=== PATIENT | female | born 1975 | race Caucasian/White ===

== ENCOUNTER → 2016-12-16 | Outpatient (CLI) | payer BC ==
[2015-02-19 09:39] VITALS: BP 119/80
[~2016-12-16] MED LIST: OXYC-328 PO
--- NOTE | 2016-12-16 17:57 | KCIC ---
EXAM: Lumbar spine MRI without contrast. HISTORY: Pain. TECHNIQUE: Multiplanar, multisequence magnetic resonance imaging of the lumbar spine was performed without contrast. COMPARISON: MRI dated 05/30/2014. FINDINGS: There is minimal retrolisthesis of L5-S1. The vertebral bodies are normal in height and demonstrate normal marrow signal intensity. There is disc desiccation at L5-S1. The conus terminates at L1. At L1-L2 and L2-L3, there is no stenosis. At L3-L4, there is a left foraminal to extraforaminal disc protrusion with annular tear and minimal superior extrusion. There is minimal facet arthropathy. There is mild left foraminal stenosis with abutment of the exiting left L3 nerve root. At L4-L5, there is a right foraminal to extraforaminal disc protrusion and annular tear. There is minimal right foraminal stenosis with abutment of the exiting right L4 nerve root. At L5-S1, there is a shallow left paracentral disc protrusion and right foraminal to lateral disc protrusion superimposed on a disc bulge. There is abutment of the exiting right L5 nerve root without significant stenosis. IMPRESSION: Multilevel degenerative change within the mid lower lumbar spine, described in detail above. This results in minimal left foraminal stenosis with abutment of the exiting left L3 nerve root at L3-L4, normal right foraminal stenosis with abutment of the exiting right L4 nerve root L4-L5, and abutment of the exiting right L5 nerve root without significant stenosis at L5-S1. These findings are slightly increased compared to the prior study, allowing for differences in imaging technique. Electronically signed by: Ashlyn Ojeda MD (12/16/2016 5:54 PM)
== END | disposition home or self-care (01) ==
LOC: KCIC MRI 16:41
PROVIDERS: ATTEND Nurse Practitioner
DX: M47.26 Other spondylosis with radiculopathy, lumbar region (principal); G89.29 Other chronic pain
CPT/HCPCS: 72148

== ENCOUNTER → 2017-11-24 | Outpatient (CLI) | payer OTHER | END | disposition home or self-care (01) | LOC: KCIC US 09:57 | DX: Z12.31 Encounter for screening mammogram for malignant neoplasm of breast (principal); Z87.42 Personal history of other diseases of the female genital tract | CPT/HCPCS: 76856; 77063; 77067 ==